=== PATIENT | female | born 1985 | race Two or more races ===

== ENCOUNTER 2020-03-06 19:40 | Emergency (ER) | payer MEDICAID, OTHER ==
[~2020-03-06] VITALS: Ht 157.5 cm; Wt 70.8 kg
[2020-03-06 20:40] LABS: Basophils # (auto) 0.1 10 ^3/uL (0-0.2); Basophils % (auto) 0.8 % (0.0-2.0); Eosinophils # (auto) 0.1 10 ^3/uL (0-0.8); Hematocrit 43.6 % (36.0-46.0); Hemoglobin 14.7 g/dL (12.2-16.2); Lymphocytes # (auto) 2.3 10 ^3/uL (0.4-5.4); Lymphocytes % (auto) 32.1 % (10.0-50.0); Mean Corpuscular Hemoglobin 28.9 pg (28.0-32.0); Mean Corpuscular Hgb Conc. 33.8 g/dL (32.0-36.0); Mean Corpuscular Volume 85.7 fL (80.0-100.0); Monocytes # (auto) 0.4 10 ^3/uL (0-1.3); Monocytes % (auto) 5.8 % (0.0-12.0); Neutrophils # (auto) 4.2 10 ^3/uL (1.6-8.6); Neutrophils % (auto) 59.3 % (37.0-80.0); Nucleated Red Blood Cells % 0.3 %; Platelet Count (auto) 215 10^3/uL (140-450); Red Blood Cells 5.08 10^6/uL (4.0-5.20); Red Cell Distribution Width 15.6 % (11.8-14.3); White Blood Cell 7.1 10^3/uL (4.4-10.8)
[2020-03-06 20:57] LABS: Anion Gap 8 (5-15); Blood Urea Nitrogen 12 mg/dL (7-18); Calcium 8.7 mg/dL (8.5-10.1); Carbon Dioxide 23 mmol/L (21-32); Chloride 108 mmol/L (98-107); Glucose 111 mg/dL (74-106); Potassium 3.2 mmol/L (3.5-5.1); Sodium 139 mmol/L (136-145)
[2020-03-06 21:00] LABS: INR 1.07 (0.9-1.15); Partial Thromboplastin Time 25.5 sec (23.64-32.05)
[2020-03-06 21:03] LABS: Alanine Aminotransferase 21 U/L (13-56); Alkaline Phosphatase 74 U/L (45-117); Aspartate Aminotransferase 11 U/L (15-37); BUN/Creatinine Ratio 16.4; Bilirubin, Total 0.7 mg/dL (0.2-1.0); GFR African American 119 mL/min; GFR Non-African American 98 mL/min; Total Protein 7.4 g/dL (6.4-8.2)
[2020-03-06] MEDS ORDERED: POTASSIUM CHL 20 Meq TABLET PO ONE (21:30)
[2020-03-06 21:35] VITALS: BP 144/103
[2020-03-06] MEDS ORDERED: ALPRAZolam 0.25 MG TAB PO ONE ×2 (21:45)
[2020-03-06 22:26] LABS: Urine Bacteria NONE SEEN /hpf (None Seen); Urine Blood Negative /uL (Negative); Urine Mucus FEW (None Seen); Urine Specific Gravity 1.014 (1.001-1.035); Urine WBC 2 /hpf (0 - 5)
== END 2020-03-06 22:47 | disposition home or self-care (01) ==
LOC: ER 19:40
DX: F41.9 Anxiety disorder, unspecified (principal); E87.6 Hypokalemia; R42 Dizziness and giddiness; R51 Headache
CPT/HCPCS: 36415; 71045; 80053; 81001; 83880; 84484; 85025; 85379; 85610; 85730; 93005

== ENCOUNTER 2020-08-27 15:19 | Emergency (ER) | payer MEDICAID ==
[~2020-08-27] VITALS: Ht 160 cm; Wt 77.1 kg
[2020-08-27 15:28] VITALS: BP 151/93
[2020-08-27 19:31] LABS: Basophils # (auto) 0 10 ^3/uL (0-0.2); Basophils % (auto) 0.2 % (0.0-2.0); Eosinophils # (auto) 0 10 ^3/uL (0-0.8); Hematocrit 42.8 % (36.0-46.0); Hemoglobin 14.6 g/dL (12.2-16.2); Lymphocytes # (auto) 0.9 10 ^3/uL (0.4-5.4); Lymphocytes % (auto) 7.5 % (10.0-50.0); Mean Corpuscular Hemoglobin 31.1 pg (28.0-32.0); Mean Corpuscular Volume 91.3 fL (80.0-100.0); Monocytes # (auto) 0.5 10 ^3/uL (0-1.3); Monocytes % (auto) 3.9 % (0.0-12.0); Neutrophils # (auto) 10.4 10 ^3/uL (1.6-8.6); Neutrophils % (auto) 88.4 % (37.0-80.0); Nucleated Red Blood Cells % 0.2 %; Platelet Count (auto) 299 10^3/uL (140-450); Red Blood Cells 4.69 10^6/uL (4.0-5.20); Red Cell Distribution Width 13.3 % (11.8-14.3); White Blood Cell 11.7 10^3/uL (4.4-10.8)
[2020-08-27 20:11] LABS: BUN/Creatinine Ratio 18.8; Potassium 4.2 mmol/L (3.5-5.1)
[2020-08-27 20:12] LABS: Albumin 3.7 g/dL (3.4-5.0); Bilirubin, Total 0.5 mg/dL (0.2-1.0); Total Protein 7.1 g/dL (6.4-8.2)
[2020-08-27 20:13] LABS: CRP High Sensitivity 0.017 mg/dL (< 0.3)
== END 2020-08-27 20:30 | disposition home or self-care (01) ==
LOC: ER 15:19
DX: U07.1 COVID-19 (principal)
CPT/HCPCS: 36415; 71045; 80053; 82728; 83615; 85025; 86141; 87426; 99284; C9803; U0003

== ENCOUNTER 2020-09-16 12:04 | Emergency (ER) | payer MEDICAID ==
[~2020-09-16] VITALS: Ht 160 cm; Wt 72.6 kg
[2020-09-16] MEDS ORDERED: ONDANSETRON ODT 4 MG TAB PO ONE (13:00)
[2020-09-16 14:22] LABS: Basophils # (auto) 0.1 10 ^3/uL (0-0.2); Basophils % (auto) 1.3 % (0.0-2.0); Eosinophils # (auto) 0.1 10 ^3/uL (0-0.8); Eosinophils % (auto) 1.4 % (0.0-7.0); Hematocrit 40.3 % (36.0-46.0); Lymphocytes % (auto) 18.6 % (10.0-50.0); Mean Corpuscular Hgb Conc. 34.7 g/dL (32.0-36.0); Mean Corpuscular Volume 92.2 fL (80.0-100.0); Monocytes # (auto) 0.2 10 ^3/uL (0-1.3); Monocytes % (auto) 4.4 % (0.0-12.0); Neutrophils # (auto) 3.9 10 ^3/uL (1.6-8.6); Neutrophils % (auto) 74.3 % (37.0-80.0); Platelet Count (auto) 224 10^3/uL (140-450); Red Blood Cells 4.37 10^6/uL (4.0-5.20); Red Cell Distribution Width 13.5 % (11.8-14.3); White Blood Cell 5.2 10^3/uL (4.4-10.8)
[2020-09-16 14:44] LABS: Albumin 3.8 g/dL (3.4-5.0); Calcium 8.4 mg/dL (8.5-10.1); Magnesium 2.3 mg/dL (1.6-2.6); Potassium 3.4 mmol/L (3.5-5.1)
[2020-09-16 14:49] LABS: BUN/Creatinine Ratio 16.9; Bilirubin, Total 0.5 mg/dL (0.2-1.0); Total Protein 7.1 g/dL (6.4-8.2)
[2020-09-16 16:42] VITALS: BP 140/87
[2020-09-16] MEDS ORDERED: ACETAMINOPHEN 325 MG TAB PO ONE (16:45)
== END 2020-09-16 17:18 | disposition home or self-care (01) ==
LOC: ER 12:04
DX: R51.9 Headache, unspecified (principal); R11.2 Nausea with vomiting, unspecified
CPT/HCPCS: 36415; 70450; 80053; 83735; 84702; 85025; 99284; Q0162

== ENCOUNTER 2021-01-23 16:46 | Emergency (ER) | payer MEDICAID ==
[~2021-01-23] VITALS: Ht 160 cm; Wt 82.1 kg
[2021-01-23 16:50] VITALS: BP 144/107
[2021-01-23] MEDS ORDERED: KETOROLAC TROMETH 60MG/2ML VIAL IM ONE ×2 (17:15→17:30)
[2021-01-23] MEDS ORDERED: METHOCARBAMOL 500 MG TAB PO ONE (17:30)
== END 2021-01-23 18:02 | disposition home or self-care (01) ==
LOC: ER 16:46
DX: S39.012A Strain of muscle, fascia and tendon of lower back, initial encounter (principal); X50.9XXA Other and unspecified overexertion or strenuous movements or postures, initial encounter; Y93.89 Activity, other specified; Y92.89 Other specified places as the place of occurrence of the external cause; Y99.8 Other external cause status
CPT/HCPCS: 96372; 99283; J1885

== ENCOUNTER 2021-03-16 16:44 | Emergency (ER) | payer MEDICAID ==
[~2021-03-16] VITALS: Ht 160 cm; Wt 81.2 kg
[2021-03-16 17:49] LABS: Basophils # (auto) 0 10 ^3/uL (0-0.2); Basophils % (auto) 0.6 % (0.0-2.0); Eosinophils # (auto) 0.1 10 ^3/uL (0-0.8); Eosinophils % (auto) 1.7 % (0.0-7.0); Hematocrit 42.3 % (36.0-46.0); Hemoglobin 14.6 g/dL (12.2-16.2); Lymphocytes # (auto) 2.3 10 ^3/uL (0.4-5.4); Lymphocytes % (auto) 30.6 % (10.0-50.0); Mean Corpuscular Hemoglobin 30.2 pg (28.0-32.0); Mean Corpuscular Hgb Conc. 34.4 g/dL (32.0-36.0); Mean Corpuscular Volume 87.7 fL (80.0-100.0); Monocytes # (auto) 0.5 10 ^3/uL (0-1.3); Monocytes % (auto) 6.5 % (0.0-12.0); Neutrophils # (auto) 4.5 10 ^3/uL (1.6-8.6); Neutrophils % (auto) 60.6 % (37.0-80.0); Red Blood Cells 4.82 10^6/uL (4.0-5.20); Red Cell Distribution Width 13.5 % (11.8-14.3); White Blood Cell 7.5 10^3/uL (4.4-10.8)
[2021-03-16 17:59] LABS: Albumin 4.1 g/dL (3.4-5.0); Anion Gap 9 (5-15); Blood Urea Nitrogen 7 mg/dL (7-18); Calcium 9.2 mg/dL (8.5-10.1); Carbon Dioxide 26 mmol/L (21-32); Chloride 103 mmol/L (98-107); Glucose 105 mg/dL (74-106); Magnesium 2.3 mg/dL (1.6-2.6); Potassium 3.5 mmol/L (3.5-5.1); Sodium 138 mmol/L (136-145)
[2021-03-16 18:06] LABS: Alanine Aminotransferase 23 U/L (13-56); Alkaline Phosphatase 58 U/L (45-117); Aspartate Aminotransferase 15 U/L (15-37); BUN/Creatinine Ratio 11.5; Bilirubin, Total 0.7 mg/dL (0.2-1.0); GFR African American 145 mL/min; GFR Non-African American 120 mL/min; Total Protein 7.7 g/dL (6.4-8.2)
[2021-03-16 23:00] VITALS: BP 144/85
== END 2021-03-16 23:34 | disposition home or self-care (01) ==
LOC: ER 16:44
DX: I10 Essential (primary) hypertension (principal); R07.89 Other chest pain; F41.9 Anxiety disorder, unspecified; Z98.890 Other specified postprocedural states
CPT/HCPCS: 36415; 71046; 80053; 83735; 84484; 85025; 93005

== ENCOUNTER 2021-11-16 11:12 | Emergency (ER) | payer MEDICAID ==
[~2021-11-16] VITALS: Ht 160 cm; Wt 77.1 kg
[2021-11-16 11:15] VITALS: BP 145/99
[2021-11-16] MEDS ORDERED: SUMAtriptan SUCCINATE 25 MG TAB PO ONE (12:15)
[2021-11-16] MEDS ORDERED: METOCLOPRAMIDE HCL 10 MG TAB PO ONE (12:30)
[2021-11-16] MEDS ORDERED: KETOROLAC TROMETH 30 MG/ML 1ML VIAL IM ONE (16:15)
[2021-11-16] MEDS ORDERED: ACETAMINOPHEN 325 MG TAB PO ONE (16:15)
== END 2021-11-16 18:28 | disposition left against medical advice (07) ==
LOC: ER 11:12
DX: G43.909 Migraine, unspecified, not intractable, without status migrainosus (principal); I10 Essential (primary) hypertension
CPT/HCPCS: 81025; 96372; 99283; J1885; J8597

== ENCOUNTER 2021-12-02 16:05 | Emergency (ER) | payer MEDICAID ==
[~2021-12-02] VITALS: Ht 160 cm; Wt 80.3 kg
[2021-12-02] MEDS ORDERED: HYDROcodone-ACET 10/325MG TAB PO ONE (16:30)
[2021-12-02] MEDS ORDERED: HYDR-4902 PO (17:56)
[2021-12-02 18:27] VITALS: BP 143/78
== END 2021-12-02 18:31 | disposition home or self-care (01) ==
LOC: ER 16:05
DX: S20.211A Contusion of right front wall of thorax, initial encounter (principal); I10 Essential (primary) hypertension; W19.XXXA Unspecified fall, initial encounter; Y93.89 Activity, other specified; Y92.89 Other specified places as the place of occurrence of the external cause; Y99.8 Other external cause status
CPT/HCPCS: 71101

== ENCOUNTER 2022-03-08 03:19 | Inpatient (IN) | payer MEDICAID ==
[~2022-03-08] VITALS: Ht 160 cm; Wt 77.1 kg
[~2022-03-08 03:19] MED LIST: HYDR-4902 PO
[2022-03-08 06:40] LABS: Basophils # (auto) 0 10 ^3/uL (0-0.2); Basophils % (auto) 0.7 % (0.0-2.0); Eosinophils # (auto) 0.2 10 ^3/uL (0-0.8); Eosinophils % (auto) 3.3 % (0.0-7.0); Hematocrit 39.3 % (36.0-46.0); Hemoglobin 13.1 g/dL (12.2-16.2); Lymphocytes # (auto) 1.6 10 ^3/uL (0.4-5.4); Lymphocytes % (auto) 31.3 % (10.0-50.0); Mean Corpuscular Hemoglobin 28.5 pg (28.0-32.0); Mean Corpuscular Hgb Conc. 33.4 g/dL (32.0-36.0); Mean Corpuscular Volume 85.4 fL (80.0-100.0); Monocytes # (auto) 0.3 10 ^3/uL (0-1.3); Monocytes % (auto) 6.3 % (0.0-12.0); Neutrophils % (auto) 58.4 % (37.0-80.0); Nucleated Red Blood Cells % 0.1 %; Red Cell Distribution Width 14.1 % (11.8-14.3); White Blood Cell 5.2 10^3/uL (4.4-10.8)
[2022-03-08 07:07] LABS: Calcium 8.9 mg/dL (8.5-10.1); Potassium 3.7 mmol/L (3.5-5.1)
[2022-03-08 07:10] LABS: Albumin 3.9 g/dL (3.4-5.0); BUN/Creatinine Ratio 19.4; Magnesium 2.2 mg/dL (1.6-2.6)
[2022-03-08 07:13] LABS: Bilirubin, Total 0.6 mg/dL (0.2-1.0); Total Protein 7.1 g/dL (6.4-8.2)
[2022-03-08] MEDS ORDERED: NITROGLYCERIN 0.4 MG SL TAB SL ONE (17:15)
[2022-03-08 17:55] VITALS: BP 149/90
[2022-03-08] MEDS ORDERED: ONDANSETRON HCL 4 MG/2 ML VIAL IV PRN (19:15)
[2022-03-08] MEDS ORDERED: MORPHINE SULFATE INJ 2 MG/ml SYRG IV PRN (19:15)
[2022-03-08] MEDS ORDERED: NITROGLYCERIN 0.4 MG SL TAB SL PRN (19:15)
[2022-03-08] MEDS ORDERED: KETOROLAC TROMETH 30 MG/ML 1ML VIAL IV PRN (19:15)
[2022-03-08] MEDS ORDERED: hydrALAZINE HCL 20 MG/ML VL IV PRN (19:30)
== END 2022-03-09 00:29 | disposition left against medical advice (07) | DRG 203 ==
LOC: ER 03:19 → TELE 19:42
PROVIDERS: ADMIT Registered Nurse; ATTEND Registered Nurse
DX: M94.0 Chondrocostal junction syndrome [Tietze] (principal); E66.9 Obesity, unspecified; I10 Essential (primary) hypertension; F41.9 Anxiety disorder, unspecified; Z20.822 Contact with and (suspected) exposure to COVID-19; Z53.29 Procedure and treatment not carried out because of patient's decision for other reasons; Z83.3 Family history of diabetes mellitus; Z82.49 Family history of ischemic heart disease and other diseases of the circulatory system; Z68.30 Body mass index [BMI] 30.0-30.9, adult
CPT/HCPCS: 36415; 71046; 80053; 83735; 83880; 84484; 84702; 85025; 85379; 93005; G0378

== ENCOUNTER 2023-07-18 05:55 | Emergency (ER) | payer MEDICAID ==
[~2023-07-18] VITALS: Ht 160 cm; Wt 75.0 kg
[2023-07-18] MEDS ORDERED: KETOROLAC TROMETH 30 MG/ML 1ML VIAL IV ONE (06:45)
[2023-07-18 07:24] LABS: Basophils # (auto) 0 10 ^3/uL (0-0.2); Lymphocytes # (auto) 1.5 10 ^3/uL (0.4-5.4); Monocytes # (auto) 0.4 10 ^3/uL (0-1.3); Neutrophils # (auto) 1.9 10 ^3/uL (1.6-8.6); Nucleated Red Blood Cells % 0.1 %
[2023-07-18 07:26] LABS: Basophils % (auto) 0.9 % (0.0-2.0); Eosinophils # (auto) 0.2 10 ^3/uL (0-0.8); Eosinophils % (auto) 3.7 % (0.0-7.0); Hematocrit 38.9 % (36.0-46.0); Hemoglobin 12.7 g/dL (12.2-16.2); Lymphocytes % (auto) 37.1 % (10.0-50.0); Mean Corpuscular Hemoglobin 26.2 pg (28.0-32.0); Mean Corpuscular Hgb Conc. 32.5 g/dL (32.0-36.0); Mean Corpuscular Volume 80.5 fL (80.0-100.0); Monocytes % (auto) 10.4 % (0.0-12.0); Neutrophils % (auto) 47.9 % (37.0-80.0); Red Blood Cells 4.83 10^6/uL (4.0-5.20); Red Cell Distribution Width 16.4 % (11.8-14.3); White Blood Cell 4.1 10^3/uL (4.4-10.8)
[2023-07-18] MEDS ORDERED: PROCHLORPERAZINE EDISYLATE 5 MG/ML 2ML VIAL IV ONE (07:30)
[2023-07-18] MEDS ORDERED: diphenhdrAMINE HCL 50 MG/1 ML VL IV ONE (07:30)
[2023-07-18 07:32] LABS: Alanine Aminotransferase 22 U/L (7-40); Albumin 4.3 g/dL (3.2-4.8); Alkaline Phosphatase 53 U/L (46-116); Anion Gap 7 (5-15); Aspartate Aminotransferase 21 U/L (13-40); Calcium 9.1 mg/dL (8.7-10.4); Carbon Dioxide 25 mmol/L (20-30); Chloride 106 mmol/L (98-107); Glucose 90 mg/dL (74-106); Potassium 3.8 mmol/L (3.5-5.1); Sodium 138 mmol/L (136-145)
[2023-07-18 07:33] LABS: Bilirubin, Total 0.5 mg/dL (0.2-1.0); Total Protein 6.8 g/dL (5.7-8.2)
[2023-07-18 07:35] LABS: BUN/Creatinine Ratio 7.9 (10.0-20.0); Blood Urea Nitrogen < 5 mg/dL (9-23)
[2023-07-18 07:41] LABS: Magnesium 1.9 mg/dL (1.6-2.6)
[2023-07-18 07:42] LABS: Urine Bacteria FEW /hpf (None Seen); Urine Blood Negative /uL (Negative); Urine Clarity Clear (Clear); Urine Color Colorless (Yellow); Urine Protein, UAD Negative (Negative); Urine Specific Gravity 1.008 (1.001-1.035); Urine Urobilinogen Normal (Negative); Urine WBC 1 /hpf (0 - 5)
[2023-07-18 07:51] LABS: Blood Alcohol < 3.0 mg/dL (<10)
[2023-07-18] MEDS ORDERED: PROC10TA6 PO (08:39)
[2023-07-18] MEDS ORDERED: DIPH25CA66 PO (08:39)
[2023-07-18] MEDS ORDERED: TRAM50TA2 PO (08:39)
[2023-07-18 08:44] VITALS: BP 115/85; PULSE 97; RESP 18; TEMP 98.2; O2SAT 100
== END 2023-07-18 08:50 | disposition home or self-care (01) ==
LOC: ER 05:55
DX: G43.909 Migraine, unspecified, not intractable, without status migrainosus (principal); F41.8 Other specified anxiety disorders; R10.9 Unspecified abdominal pain; I10 Essential (primary) hypertension; Z79.899 Other long term (current) drug therapy
CPT/HCPCS: 36415; 70450; 80053; 80320; 81001; 81025; 83735; 85025; 96374; 96375; 99285; J0780; J1200; J1885

== ENCOUNTER 2024-07-14 13:19 | Emergency (ER) | payer MEDICAID ==
[~2024-07-14] VITALS: Ht 160 cm; Wt 65.9 kg
[~2024-07-14 13:19] MED LIST changes: +DIPH25CA66 PO; +PROC10TA6 PO; +TRAM50TA2 PO
[2024-07-14 14:56] LABS: Basophils # (auto) 0 10 ^3/uL (0-0.2); Eosinophils # (auto) 0 10 ^3/uL (0-0.8); Eosinophils % (auto) 0.2 % (0.0-7.0); Hemoglobin 10.9 g/dL (12.2-16.2); Lymphocytes # (auto) 0.6 10 ^3/uL (0.4-5.4); Monocytes # (auto) 0.4 10 ^3/uL (0-1.3)
[2024-07-14] MEDS: IPRATROPIUM BROM 0.5 MG/2.5ML INH SOL NEB ONE (14:56)
[2024-07-14] MEDS: ALBUTEROL SULF 2.5 MG/0.5ML(0.5%) NEB SOLN NEB ONE (14:56)
[2024-07-14 14:58] LABS: Basophils % (auto) 0.5 % (0.0-2.0); Hematocrit 34.5 % (36.0-46.0); Mean Corpuscular Hemoglobin 23.8 pg (28.0-32.0); Mean Corpuscular Hgb Conc. 31.5 g/dL (32.0-36.0); Mean Corpuscular Volume 75.4 fL (80.0-100.0); Monocytes % (auto) 4.3 % (0.0-12.0); Neutrophils # (auto) 8.7 10 ^3/uL (1.6-8.6); Platelet Count (auto) 294 10^3/uL (140-450); Red Blood Cells 4.57 10^6/uL (4.0-5.20); Red Cell Distribution Width 15.9 % (11.8-14.3); White Blood Cell 9.8 10^3/uL (4.4-10.8)
[2024-07-14] MEDS: LORazepam 2MG/ML-1ML VIAL IM ONE (15:08)
[2024-07-14] MEDS: LORazepam 0.5 MG TAB PO ONE (15:28)
[2024-07-14] MEDS: ONDANSETRON HCL 4 MG/2 ML VIAL IV ONE (15:28)
[2024-07-14] MEDS: KETOROLAC TROMETH 30 MG/ML 1ML VIAL IV ONE (15:29)
[2024-07-14] MEDS: DexAMETHasone SOD PHOS 10MG/1ML VIAL INJ IV ONE (15:29)
[2024-07-14] MEDS: FAMOTIDINE (10MG/ML) 2ML VL IV ONE (15:29)
[2024-07-14 20:12] LABS: Urine Bacteria None Seen /hpf (None Seen)
[2024-07-14 20:41] LABS: Urine Blood Negative /uL (Negative); Urine Clarity Turbid (Clear); Urine Color Yellow (Yellow); Urine Mucus FEW (None Seen); Urine Protein, UAD TRACE (Negative); Urine Specific Gravity 1.023 (1.001-1.035); Urine Urobilinogen Normal (Negative); Urine WBC <1 /hpf (0 - 5)
[2024-07-14 20:45] LABS: Amphetamine Screen, Urine Neg (NEGATIVE); Barbiturate Scree,Urine Neg (NEGATIVE); Benzodiazephine Screen, Urine Neg (NEGATIVE); Cannabinoid Screen, Urine Neg (NEGATIVE); Cocaine Screen, Urine Neg (NEGATIVE); Opiate Scree,Urine Neg (NEGATIVE); Phencyclidine Screen, Urine Neg (NEGATIVE)
[2024-07-14] MEDS ORDERED: IBUP1TAB5 PO (21:29)
[2024-07-14] MEDS ORDERED: ALBU108A5 IN (21:29)
[2024-07-14] MEDS ORDERED: HYDR50TA32 PO (21:29)
[2024-07-14] MEDS ORDERED: AUG875T PO (21:29)
[2024-07-14 22:02] VITALS: BP 152/92; PULSE 66; RESP 19; TEMP 98.7; O2SAT 100
== END 2024-07-14 22:02 | disposition home or self-care (01) ==
LOC: EDBD 13:19 → ER 13:21
DX: J40 Bronchitis, not specified as acute or chronic (principal); R10.2 Pelvic and perineal pain; F41.9 Anxiety disorder, unspecified; I10 Essential (primary) hypertension; Z98.890 Other specified postprocedural states; Z79.899 Other long term (current) drug therapy
CPT/HCPCS: 36415; 71045; 80307; 80320; 81001; 83880; 84484; 84702; 85025; 93005; 94640; 96374; 96375; 99285; J1100; J1885; J2405; J3490